=== PATIENT | female | born 1995 | race Caucasian/White ===

== ENCOUNTER 2020-10-20 13:28 | Outpatient (REF) | payer OTHER, SELFPAY | END 2020-10-20 13:29 | disposition home or self-care (01) | LOC: HO.LAB 13:28 | PROVIDERS: PCP Internal Medicine; Visit Provider Internal Medicine | DX: Z20.828 Contact with and (suspected) exposure to other viral communicable diseases (principal) | CPT/HCPCS: C9803; U0003 ==

== ENCOUNTER 2022-11-11 09:54 | Emergency (ER) | payer OTHER, SELFPAY ==
--- NOTE | ~2022-11-11 | XR_ITS ---
EXAMINATION: XR ANKLE, LEFT CLINICAL INFORMATION: Twisting injury of left ankle. COMPARISON: None TECHNIQUE: AP, lateral, and mortise views of the left ankle. FINDINGS: Alignment is normal. The talar dome is well-positioned within the mortise. The ankle joint space and syndesmotic space are normal. No fracture, subluxation or joint effusion. Soft tissues are swollen at the lateral ankle. XR/XR ankle LT 2V IMPRESSION: * No evidence of fracture or malalignment at the left ankle. * Soft tissues are swollen at the lateral ankle.
[2022-11-11 10:00] VITALS: BP 101/66; PULSE 79; RESP 17; TEMP 36.6; O2SAT 98; BMI 23.8
--- NOTE | 2022-11-11 10:56 | ED_ITS ---
HPI - General Adult General Chief complaint: Extremity Injury, Lower Stated complaint: L ankle inj Time Seen by Provider: 11/11/22 10:55 Source: patient Mode of arrival: wheelchair Limitations: no limitations History of Present Illness HPI narrative: Patient is a 27 year old assigned female at with no reported medical history presenting to the emergency department today with left ankle pain. Patient states that she twisted her left ankle yesterday and she is still having pain. Patient denies hitting her head or any loss of consciousness with the incident. Patient denies any dizziness, lightheadedness, abdominal pain, nausea, vomiting, fever, chills, blurry vision, double vision, loss of vision, chest pain, difficulty breathing, shortness of breath, back pain, night sweats, pain with urination, increased urinary frequency, increased urinary urgency, blood in her urine or stool, syncope or a near syncopal episode, bowel incontinence, bladder incontinence, bowel retention, bladder retention, or any other complaints at this time. Onset (ago): day(s) (1) Location: left and lower extremity (ankle) Radiation: non-radiation Severity: mild Severity scale (1-10): 3 Quality: dull Pain Consistency: constant Relieving factors: none Exacerbating factors: none Associated symptoms: denies other symptoms Treatments prior to arrival: none Related Data Allergies Allergy/AdvReac Type Severity Reaction Status Date / Time Sulfa (Sulfonamide Allergy Unknown HIVES, rash Unverified 07/20/20 16:24 Antibiotics) [SULFA (SULFONAMIDE ANTIBIOTICS)] Review of Systems Constitutional: Constitutional: Reports no additional constitutional complaints, Denies chills, Denies fever(s) and Denies night sweats Eyes: Eyes: Reports no additional eye complaints, Denies blurry vision, Denies change in vision, Denies diplopia, Denies eye discharge, Denies loss of vision and Denies eye pain ENT: Denies dizziness Cardiovascular: Cardiovascular: Reports no additional cardiovascular complaints, Denies chest pain, Denies lightheadedness, Denies Loss of Consciousness and Denies dyspnea Respiratory: Respiratory: Reports no additional respiratory complaints and Denies dyspnea Gastrointestinal: Gastrointestinal: Reports no additional gastrointestinal complaints, Denies abdominal pain, Denies melena, Denies hematochezia, Denies change in bowel habits and Denies change in stool character Genitourinary: Genitourinary: Denies hematuria, Denies urinary frequency, Denies dysuria, Denies urinary incontinence, Denies urinary hesitancy and Denies urinary urgency Musculoskeletal: Musculoskeletal: Reports no additional musculoskeletal complaints, Denies numbness and Denies tingling Comments: left ankle pain and swelling Neurologic: Denies dizziness, Denies loss of vision, Denies numbness and Denies tingling Psychiatric: Psychiatric: Reports no additional psychiatric complaints Endocrine: Endocrine: Reports no additional endocrine complaints Hematologic/Lymphatic: Hematologic/Lymphatic: Reports no additional hematologic/lymphatic complaints Allergic/Immunologic: Allergic/Immunologic: Reports no additional allergic/immunologic complaints [facility] Past Medical History Attestation statement: The following information was validated with the patient. Source: old records reviewed and nursing notes reviewed Social History Social History Advance Directives: No Advance Directives Information Provided: No Physical Exam ED Vital Signs: Vital Signs - 24 hr 11/11/22 10:00 Temperature 98 F Pulse Rate 79 Respiratory Rate 17 Blood Pressure 101/66 Pulse Oximetry 98 Oxygen Delivery Method Room Air BMI result Body Mass Index 23.8 Const General: cooperative, no acute distress, alert and awake Nutritional Appearance: well nourished Orientation/consciousness: patient oriented x3 Limitations: no limitations HENMT Head: Yes normal to inspection and Yes atraumatic Ears: hearing grossly normal bilaterally and external ears normal General nose exam: Normal external nose present, no nasal discharge noted and no epistaxis Face and sinus: Yes normal facial exam, No abrasion and No laceration Mouth: Normal oral and palatal mucosa present, no drooling and no muffled voice Eyes General: appearance normal, both eyes and all related structures Periorbital: periorbital findings normal Eyelids: Yes eyelids normal Conjunctivae: conjunctivae normal Pupils: Equal, round and reactive pupils present EOM: EOMs intact bilaterally Neck Neck: Yes normal visual inspection, Yes full ROM and Yes no lymphadenopathy Chest Chest palpation & inspection: normal inspection of the chest Resp Effort & Inspection: normal respiratory effort and able to speak in complete sentences Auscultation: clear to auscultation bilaterally Cardio Rate: regular rate Rhythm: regular rhythm GI Inspection: Yes normal to inspection Palpation (GI): Soft to palpation, not firm, nontender, no guarding and not rigid Neuro General: patient oriented x3 and moves all extremities Cranial nerves: Yes Equal, round and reactive pupils present Cognition (Neuro): normal cognition Motor exam (neuro): 5/5 motor strength present throughout Sensory Exam: Normal double simultaneous stimulation for sensation Coordination: [id number] test normal Extrem Other: minimal swelling to the left lateral ankle General: Yes full ROM and Yes capillary refill normal Psych Appearance: grossly normal Mental Status: mental status grossly normal Affect: normal affect Attitude: cooperative Thought process: Normal thought process present Thought content: Normal thought content present Insight: Good insight present (Psych) Procedures Orthopedic Splinting/Casting Injury #1: Side: left Lower Extremity Injury Location: ankle Lower Extremity Immobilizer: Fito wrap Other Orthopedic Equipment: crutches Medical Decision Making Medical Decision Making MDM Narrative: Patient is a 27 year old assigned female at with no reported medical history presenting to the emergency department today with left ankle pain. Patient's physical exam showed minimal left ankle swelling. Patient's left ankle x-ray showed no acute process. I explained my physical exam findings as well as all test results to the patient. I answered all questions asked by the patient. Patient's left ankle was wrapped with fito and the patient was given crutches with crutch instructions. I stressed the importance of the patient taking her medication as prescribed. I stressed the importance of the patient following up with her primary care provider and an orthopedics. I stressed the importance of the patient returning to the emergency department immediately if her symptoms were to worsen or if she were to develop any dizziness, shortness of breath, difficulty breathing, chest pain, blurry vision, loss of vision, nausea, vomiting, abdominal pain, fever, chills, back pain, or any other complaints. Patient verbalized agreement and understanding with this treatment plan and discharge. Differential Diagnosis Differential Diagnoses: The differential diagnosis associated with the presentation includes ankle sprain, ankle fracture, ankle injury Radiology Impression Discussion of test interpretation with radiology: I have reviewed the radiologist's reading. Radiologist Impression: My interpretation is in agreement with the radiologist's impression of this imaging study. EXAMINATION: XR ANKLE, LEFT CLINICAL INFORMATION: Twisting injury of left ankle.? COMPARISON: None? TECHNIQUE: AP, lateral, and mortise views of the left ankle. FINDINGS: Alignment is normal. The talar dome is well-positioned within the mortise. The ankle joint space and syndesmotic space are normal. No fracture, subluxation or joint effusion. Soft tissues are swollen at the lateral ankle.? XR/XR ankle LT 2V IMPRESSION: *? No evidence of fracture or malalignment at the left ankle. *? Soft tissues are swollen at the lateral ankle. Dictated By: Ernie Navarro MD Signed By: Electronically signed by Ernie Navarro MD 11/11/22 1205 Discharge Plan Discharge Clinical Impression: Ankle injury Patient Disposition: Home, Self-Care Instructions: Crutch Instructions (ED) Additional Instructions: Follow up with your primary care provider and an orthopedic provider. Return to the emergency department immediately if your symptoms worsen or if you develop any dizziness, shortness of breath, difficulty breathing, chest pain, blurry vision, loss of vision, nausea, vomiting, abdominal pain, fever, chills, back pain, or any other complaints. Referrals: Keira Perales MD [Primary Care Provider] - Stand Alone Forms: Work/School Release Interventions: ED Discharge Assessment Last Done: 11/11/22 12:23 Discharge Date/Time: 11/11/22 12:26 Print Language: [place]ian
== END 2022-11-11 12:26 | disposition home or self-care (01) ==
PROVIDERS: Emergency Provider Student in an Organized Health Care Education/Training Program; PCP Internal Medicine
DX: S99.912A Unspecified injury of left ankle, initial encounter (principal); X50.1XXA Overexertion from prolonged static or awkward postures, initial encounter; Y93.9 Activity, unspecified; Y92.9 Unspecified place or not applicable; Y99.9 Unspecified external cause status
CPT/HCPCS: 73600; 99282; 99283